=== PATIENT | female | born 1990 | race Caucasian/White ===

== ENCOUNTER 2016-09-02 11:31 | Emergency (ER) | payer MEDICAID ==
[~2016-09-02] VITALS: Ht 165.1 cm; Wt 81.6 kg
[2016-09-02 11:31] VITALS: BP 131/89; PULSE 80; RESP 19; TEMP 97.3; O2SAT 97
[~2016-09-02 11:31] MED LIST: AMOX500C2 PO; CEPH-568 PO; DEPOPROVER IM; IBUP-1479 PO; IRON; prenatal vit
== END 2016-09-02 14:25 | disposition left against medical advice (07) ==
LOC: SED 11:31
DX: R10.30 Lower abdominal pain, unspecified (principal); Z53.21 Procedure and treatment not carried out due to patient leaving prior to being seen by health care provider

== ENCOUNTER 2020-02-23 04:21 | Emergency (ER) | payer MEDICAID ==
[~2020-02-23] VITALS: Ht 165.1 cm; Wt 83.9 kg
[~2020-02-23 04:21] MED LIST changes: -AMOX500C2 PO; -CEPH-568 PO; -DEPOPROVER IM; -IBUP-1479 PO; +IBUP-1968 PO; -IRON; -prenatal vit
[2020-02-23 04:25] VITALS: BP_SYST 110
[2020-02-23 04:59] LABS: EOSINOPHILS # (AUTO) 0.1 K/uL (0.0-0.4); LYMPHOCYTES # (AUTO) 1.2 K/uL (1.0-5.5); MONOCYTES # (AUTO) 0.6 K/uL (0.0-1.0)
[2020-02-23] MEDS ORDERED: ACETAMINOPHEN 500 MG TABLET PO ONE (05:00)
[2020-02-23 05:05] LABS: MONOCYTES % (AUTO) 8.2 % (1.7-9.3); RED CELL DISTRIBUTION WIDTH 19.6 % (9.0-15.0)
[2020-02-23 05:09] LABS: BASOPHILS % (AUTO) 0.6 % (0.0-2.0); EOSINOPHILS % (AUTO) 1.4 % (0.0-4.0); HEMATOCRIT 37.4 % (36-48); LYMPHOCYTES % (AUTO) 17.3 % (20.5-51.5); MEAN CORPUSCULAR HEMOGLOBIN 24 pg (27-31); MEAN CORPUSCULAR HGB CONC 32 % (32-36); MEAN CORPUSCULAR VOLUME 75 fL (79.0-98.0); NEUTROPHILS # (AUTO) 5.1 K/uL (1.8-7.7); NEUTROPHILS % (AUTO) 72.5 % (40.0-70.0)
[2020-02-23 05:13] LABS: CALCIUM 9.1 mg/dL (8.4-11.0); CREATININE 0.76 mg/dL (0.55-1.30); POTASSIUM 3.6 mmol/L (3.5-5.1)
[2020-02-23 05:18] LABS: ALBUMIN 3.4 g/dL (3.4-4.8); TOTAL BILIRUBIN 0.7 mg/dL (0.0-1.0)
[2020-02-23 05:21] LABS: PLATELET COUNT (AUTO) 148 K/uL (130-430)
[2020-02-23] MEDS ORDERED: ONDANSETRON HCL 4 MG/2 ML VIAL IVP ONE (05:30)
[2020-02-23] MEDS ORDERED: NACL 0.9% 1,000 ML IV ONE (05:30)
[2020-02-23 06:42] VITALS: BP_SYST 118
== END 2020-02-23 06:42 | disposition home or self-care (01) ==
LOC: SED 04:21
DX: O20.0 Threatened abortion (principal); O21.9 Vomiting of pregnancy, unspecified; O26.891 Other specified pregnancy related conditions, first trimester; K59.00 Constipation, unspecified; R74.0 Nonspecific elevation of levels of transaminase and lactic acid dehydrogenase [LDH]; J45.909 Unspecified asthma, uncomplicated; Z03.818 Encounter for observation for suspected exposure to other biological agents ruled out; Z3A.01 Less than 8 weeks gestation of pregnancy; Z88.6 Allergy status to analgesic agent
CPT/HCPCS: 36415; 76801; 80053; 81002; 84702; 85025; 86900; 86901; 96361; 96374; 99284; C9803; J2405; J7030; U0003; 76802

== ENCOUNTER 2023-09-01 09:57 | Emergency (ER) | payer SELFPAY ==
[~2023-09-01] VITALS: Ht 165.1 cm; Wt 95.3 kg
[2023-09-01 10:00] VITALS: BP_SYST 122; PULSE 105; RESP 19; TEMP 97.7; O2SAT 96
[2023-09-01] MEDS ORDERED: NACL 0.9% 1,000 ML IV ONE (10:30)
[2023-09-01] MEDS ORDERED: ONDANSETRON HCL 4 MG/2 ML VIAL IVP ONE (10:30)
== END 2023-09-01 10:41 | disposition left against medical advice (07) ==
LOC: SED 09:57
DX: R10.31 Right lower quadrant pain (principal); R11.10 Vomiting, unspecified; J45.909 Unspecified asthma, uncomplicated; Z79.899 Other long term (current) drug therapy
CPT/HCPCS: 99281